=== PATIENT | female | born 1930 | race Caucasian/White ===

== ENCOUNTER 2020-07-27 11:55 | Inpatient (IN) | payer MEDICARE ==
[~2020-07-27] VITALS: Ht 157.5 cm; Wt 45.8 kg
[~2020-07-27 11:55] MED LIST: CIME800T MT; ESOM10SU PO; RIVA1PAT9 TP; TRAZ-251 MT
[2020-07-27 13:51] LABS: BASOPHILS % 0.5 % (0.0-2.0); EOSINOPHILS % 1.2 % (0.0-5.0); HEMATOCRIT. 38.4 % (36.0-48.0); HEMOGLOBIN. 12.7 g/dL (12.0-16.0); LYMPHOCYTES % 17.7 % (20.0-50.0); MEAN CORPUSCULAR HEMOGLOBIN 29.4 pg (28.0-32.0); MEAN CORPUSCULAR VOLUME 89.2 fL (81.0-99.0); MEAN PLATELET VOLUME 8.6 fl (7.4-10.4); MONOCYTES % 4.9 % (2.0-8.0); NEUTROPHILS % 75.7 % (40.0-76.0); PLATELET 307 x1000/uL (130-400); RED BLOOD CELL COUNT 4.31 mill/uL (4.2-5.4); RED CELL DISTRIBUTION WIDTH 17.6 % (11.6-14.6)
[2020-07-27 13:58] LABS: CLARITY URINE TURBID (CLEAR); COLOR URINE YELLOW (YELLOW); KETONES URINE TRACE (NEGATIVE); LEUKOCYTE ESTERASE URINE TRACE (NEGATIVE); NITRITE URINE NEGATIVE (NEGATIVE); OCCULT BLOOD URINE TRACE (NEGATIVE); PH URINE 7.5 (4.5-8.0); PROTEIN URINE 1+ (NEGATIVE); SPECIFIC GRAVITY URINE 1.022 (1.005-1.030)
[2020-07-27 14:01] LABS: CHLORIDE 110 mEq/L (98-107); INR 1.1; PROTHROMBIN TIME 11.1 sec (9.6-11.0)
[2020-07-27] MEDS ORDERED: CEFTRIAXONE 1 G PREMIX 50 ML IV SCH (14:15)
[2020-07-27] MEDS ORDERED: SODIUM CHLORIDE 0.9% 1,000 ML IV ONE (14:15)
[2020-07-27] MEDS ORDERED: ACETAMINOPHEN 325MG TABLET PO PRN (14:30)
[2020-07-27] MEDS ORDERED: ONDANSETRON HCL 4MG/2ML INJ IV PRN (14:30)
[2020-07-27] MEDS: AMLODIPINE 2.5MG TABLET PO SCH (15:30)
[2020-07-27] MEDS: DOCUSATE SODIUM 250MG CAPSULE PO SCH (15:45)
[2020-07-27 17:33] VITALS: BP 133/97
[2020-07-27 17:40] VITALS: BP 149/89
[2020-07-27] MEDS: DEXT 5%/0.45% NACL 1000ML 1,000 ML IV SCH (18:36)
[2020-07-27 20:00] VITALS: BP 134/83
[2020-07-28 00:04] VITALS: BP 159/81
[2020-07-28 04:29] VITALS: BP 154/74
[2020-07-28] MEDS: DEXT 5%/0.45% NACL 1000ML 1,000 ML IV SCH ×2 (04:35→18:01)
[2020-07-28 07:53] LABS: BASOPHILS % 0.5 % (0.0-2.0); EOSINOPHILS % 3.4 % (0.0-5.0); HEMATOCRIT. 35.3 % (36.0-48.0); HEMOGLOBIN. 11.5 g/dL (12.0-16.0); LYMPHOCYTES % 21.1 % (20.0-50.0); MEAN CORPUSCULAR HEMOGLOBIN 29.3 pg (28.0-32.0); MEAN PLATELET VOLUME 8.4 fl (7.4-10.4); MONOCYTES % 8.7 % (2.0-8.0); NEUTROPHILS % 66.3 % (40.0-76.0); PLATELET 243 x1000/uL (130-400); RED BLOOD CELL COUNT 3.92 mill/uL (4.2-5.4); RED CELL DISTRIBUTION WIDTH 17.7 % (11.6-14.6)
[2020-07-28 08:00] VITALS: BP 154/67
[2020-07-28 08:09] LABS: CHLORIDE 111 mEq/L (98-107)
[2020-07-28] MEDS: ASPIRIN 81MG TABLET PO SCH (08:59)
[2020-07-28] MEDS: DOCUSATE SODIUM 250MG CAPSULE PO SCH (08:59)
[2020-07-28] MEDS ORDERED: POTASSIUM CHLORIDE 20MEQ TABLET SR PO NR (09:00)
[2020-07-28] MEDS: AMLODIPINE 2.5MG TABLET PO SCH (09:01)
[2020-07-28 12:00] VITALS: BP 181/83
[2020-07-28] MEDS ORDERED: CEFTRIAXONE 1,000 MG in DEXTROSE 5% WATER 50 ML IV SCH (15:00)
[2020-07-28 16:00] VITALS: BP 153/73
[2020-07-28] MEDS: CEFTRIAXONE 1,000 MG in DEXTROSE 5% WATER 50 ML IV SCH (18:00)
[2020-07-28 20:00] VITALS: BP 152/58
[2020-07-28] MEDS: AMLODIPINE 5MG TABLET PO SCH (20:51)
[2020-07-29] VITALS: BP 95/79
[2020-07-29 04:30] VITALS: BP 116/59
[2020-07-29 06:25] LABS: BASOPHILS % 0.4 % (0.0-2.0); EOSINOPHILS % 2.6 % (0.0-5.0); HEMATOCRIT. 33.9 % (36.0-48.0); HEMOGLOBIN. 11.4 g/dL (12.0-16.0); LYMPHOCYTES % 18.2 % (20.0-50.0); MEAN CORPUSCULAR HEMOGLOBIN 29.4 pg (28.0-32.0); MEAN CORPUSCULAR VOLUME 87.8 fL (81.0-99.0); MEAN PLATELET VOLUME 8.5 fl (7.4-10.4); MONOCYTES % 7.5 % (2.0-8.0); NEUTROPHILS % 71.3 % (40.0-76.0); PLATELET 275 x1000/uL (130-400); RED BLOOD CELL COUNT 3.87 mill/uL (4.2-5.4); RED CELL DISTRIBUTION WIDTH 17.4 % (11.6-14.6)
[2020-07-29] MEDS: DEXT 5%/0.45% NACL 1000ML 1,000 ML IV SCH (06:30)
[2020-07-29 07:02] LABS: CHLORIDE 110 mEq/L (98-107)
[2020-07-29] MEDS: DOCUSATE SODIUM 250MG CAPSULE PO SCH (09:00)
[2020-07-29] MEDS: AMLODIPINE 5MG TABLET PO SCH (09:39)
[2020-07-29] MEDS: ASPIRIN 81MG TABLET PO SCH (09:39)
[2020-07-29 09:49] VITALS: BP 153/63
[2020-07-29 12:00] VITALS: BP 136/99
[2020-07-29] MEDS ORDERED: AMLO5TAB88 PO (13:05)
[2020-07-29 14:52] VITALS: BP 147/71
[2020-07-29 16:00] VITALS: BP 129/50
[2020-07-29] MEDS: CEFTRIAXONE 1,000 MG in DEXTROSE 5% WATER 50 ML IV SCH (18:49)
== END 2020-07-29 19:55 | disposition home or self-care (01) | DRG 73 ==
LOC: ER 12:01 → EDBEDREQSVC 15:18 → EDBEDREQ 15:18 → ENRESERV 15:38 → 6WST 17:14
PROVIDERS: ADMIT Ophthalmology; ATTEND Ophthalmology
DX: G90.8 Other disorders of autonomic nervous system (principal); E43 Unspecified severe protein-calorie malnutrition; E87.2 Acidosis; Z68.1 Body mass index [BMI] 19.9 or less, adult; N39.0 Urinary tract infection, site not specified; E87.8 Other disorders of electrolyte and fluid balance, not elsewhere classified; F02.80 Dementia in other diseases classified elsewhere, unspecified severity, without behavioral disturbance, psychotic disturbance, mood disturbance, and anxiety; G20 Parkinson's disease; I45.10 Unspecified right bundle-branch block; Z86.73 Personal history of transient ischemic attack (TIA), and cerebral infarction without residual deficits; Z79.899 Other long term (current) drug therapy
CPT/HCPCS: 36415; 71045; 80048; 80053; 81003; 83605; 83735; 84145; 84484; 85025; 93005; 93306; 93880; 97162; 97166; 99291; J0696; J7060

== ENCOUNTER 2020-07-30 16:25 | Inpatient (IN) | payer MEDICARE ==
[~2020-07-30] VITALS: Ht 160 cm; Wt 63.5 kg
[~2020-07-30 16:25] MED LIST changes: +AMLO5TAB88 PO
[2020-07-30] MEDS ORDERED: PANTOPRAZOLE SODIUM 40 MG/VIAL IV STA (16:36)
[2020-07-30 17:42] LABS: BASOPHILS % 0.2 % (0.0-2.0); HEMATOCRIT. 33.9 % (36.0-48.0); HEMOGLOBIN. 11.2 g/dL (12.0-16.0); LYMPHOCYTES % 8.9 % (20.0-50.0); MEAN CORPUSCULAR HEMOGLOBIN 29.3 pg (28.0-32.0); MEAN CORPUSCULAR VOLUME 88.5 fL (81.0-99.0); MEAN PLATELET VOLUME 8.6 fl (7.4-10.4); MONOCYTES % 4.3 % (2.0-8.0); NEUTROPHILS % 86.6 % (40.0-76.0); PLATELET 278 x1000/uL (130-400); RED BLOOD CELL COUNT 3.83 mill/uL (4.2-5.4); RED CELL DISTRIBUTION WIDTH 17.3 % (11.6-14.6)
[2020-07-30 17:46] LABS: INR 1.1; PROTHROMBIN TIME 11.3 sec (9.6-11.0)
[2020-07-30 17:51] LABS: CHLORIDE 112 mEq/L (98-107)
[2020-07-30] MEDS ORDERED: IOHEXOL-300 100 ML BOTTLE ONE (19:32)
[2020-07-30 22:52] LABS: CLARITY URINE CLEAR (CLEAR); COLOR URINE YELLOW (YELLOW); KETONES URINE TRACE (NEGATIVE); LEUKOCYTE ESTERASE URINE NEGATIVE (NEGATIVE); NITRITE URINE NEGATIVE (NEGATIVE); OCCULT BLOOD URINE NEGATIVE (NEGATIVE); PROTEIN URINE TRACE (NEGATIVE); SPECIFIC GRAVITY URINE 1.057 (1.005-1.030); UROBILINOGEN URINE 0.2 E.U./dL (0.2-1.0)
[2020-07-31] VITALS (8 sets, daily range): BP systolic 121–157; BP diastolic 51–83
[2020-07-31] MEDS: DEXT 5%/0.45% NACL 1000ML 1,000 ML IV SCH ×2 (02:31→17:05)
[2020-07-31] MEDS: CEFTRIAXONE 1,000 MG in DEXTROSE 5% WATER 50 ML IV SCH (04:21)
[2020-07-31 06:35] LABS: BASOPHILS % 0.3 % (0.0-2.0); EOSINOPHILS % 0.2 % (0.0-5.0); HEMATOCRIT. 32.6 % (36.0-48.0); HEMOGLOBIN. 10.7 g/dL (12.0-16.0); LYMPHOCYTES % 9.3 % (20.0-50.0); MEAN CORPUSCULAR HEMOGLOBIN 29.4 pg (28.0-32.0); MEAN CORPUSCULAR VOLUME 89.5 fL (81.0-99.0); MEAN PLATELET VOLUME 8.7 fl (7.4-10.4); MONOCYTES % 5.2 % (2.0-8.0); PLATELET 258 x1000/uL (130-400); RED BLOOD CELL COUNT 3.65 mill/uL (4.2-5.4); RED CELL DISTRIBUTION WIDTH 18.1 % (11.6-14.6)
[2020-07-31 07:37] LABS: CHLORIDE 112 mEq/L (98-107)
[2020-07-31] MEDS: POTASSIUM CHLORIDE 20MEQ TABLET SR PO SCH ×2 (12:45→16:24)
[2020-07-31] MEDS: PANTOPRAZOLE SODIUM 40 MG/VIAL IV SCH ×2 (16:25→21:06)
[2020-07-31] MEDS ORDERED: DILTIAZEM HCL 5MG/ML 5ML VIAL IV NR (22:45)
[2020-08-01] VITALS: BP 125/72
[2020-08-01 04:00] VITALS: BP 122/44
[2020-08-01] MEDS: DEXT 5%/0.45% NACL 1000ML 1,000 ML IV SCH ×2 (04:01→18:51)
[2020-08-01] MEDS: CEFTRIAXONE 1,000 MG in DEXTROSE 5% WATER 50 ML IV SCH (04:15)
[2020-08-01 08:32] LABS: BASOPHILS % 0.2 % (0.0-2.0); EOSINOPHILS % 0.3 % (0.0-5.0); HEMATOCRIT. 27.7 % (36.0-48.0); HEMOGLOBIN. 9.2 g/dL (12.0-16.0); LYMPHOCYTES % 11.3 % (20.0-50.0); MEAN CORPUSCULAR HEMOGLOBIN 29.5 pg (28.0-32.0); MEAN CORPUSCULAR VOLUME 88.9 fL (81.0-99.0); MONOCYTES % 6.5 % (2.0-8.0); NEUTROPHILS % 81.7 % (40.0-76.0); PLATELET 244 x1000/uL (130-400); RED BLOOD CELL COUNT 3.12 mill/uL (4.2-5.4)
[2020-08-01 08:49] LABS: CHLORIDE 110 mEq/L (98-107)
[2020-08-01] MEDS: PANTOPRAZOLE SODIUM 40 MG/VIAL IV SCH ×2 (09:45→22:04)
[2020-08-01 12:00] VITALS: BP 139/49
[2020-08-01] MEDS ORDERED: POTASSIUM CHLORIDE 20MEQ TABLET SR PO NR (13:03)
[2020-08-01 16:00] VITALS: BP 114/69
[2020-08-01 20:00] VITALS: BP 128/62
[2020-08-01] MEDS ORDERED: POTASSIUM CHLORIDE INJ 40 MEQ in DEXT 5% WATER 250 ML IV SCH (20:00)
[2020-08-02] VITALS: BP 152/96
[2020-08-02 04:00] VITALS: BP 150/50
[2020-08-02] MEDS: CEFTRIAXONE 1,000 MG in DEXTROSE 5% WATER 50 ML IV SCH (05:36)
[2020-08-02] MEDS ORDERED: KCL 20MEQ/100ML PREMIX 100 ML IV NR (06:30)
[2020-08-02] MEDS: POTASSIUM CHLORIDE INJ 60 MEQ in DEXT 5% WATER 500 ML IV SCH ×2 (09:00→09:26)
[2020-08-02 09:31] LABS: HEMATOCRIT. 26.4 % (36.0-48.0); HEMOGLOBIN. 8.8 g/dL (12.0-16.0); MEAN CORPUSCULAR HEMOGLOBIN 29.7 pg (28.0-32.0); MEAN CORPUSCULAR VOLUME 88.9 fL (81.0-99.0); MEAN PLATELET VOLUME 8.9 fl (7.4-10.4); PLATELET 260 x1000/uL (130-400); RED BLOOD CELL COUNT 2.97 mill/uL (4.2-5.4)
[2020-08-02 09:38] LABS: CHLORIDE 108 mEq/L (98-107)
[2020-08-02] MEDS: PANTOPRAZOLE SODIUM 40 MG/VIAL IV SCH ×2 (11:40→21:01)
[2020-08-02] MEDS ORDERED: POTASSIUM CHLORIDE INJ 40 MEQ in DEXT 5% WATER 500 ML IV SCH (12:00)
[2020-08-02 13:53] LABS: PLATELET ESTIMATE NORMAL
[2020-08-02] MEDS ORDERED: MIDAZOLAM HCL 5 MG/5 ML VIAL IV PRN (15:57)
[2020-08-02] MEDS ORDERED: MIDAZOLAM HCL 5 MG/5 ML VIAL ONE (16:03)
[2020-08-02] MEDS ORDERED: FENTANYL CITRATE/PF 50MCG/ML 2ML VIAL ONE (16:03)
[2020-08-02] MEDS: DEXT 5%/0.45% NACL 1000ML 1,000 ML IV SCH (16:45)
[2020-08-02] MEDS: METOCLOPRAMIDE HCL 10MG/2ML VIAL IV SCH (18:00)
[2020-08-02] MEDS: SUCRALFATE 1 G/10 ML UDC GT SCH (18:00)
[2020-08-02] MEDS ORDERED: BISACODYL 10MG SUPP PR NR (18:00)
[2020-08-02 18:37] VITALS: BP 122/68
[2020-08-02 20:00] VITALS: BP 115/53
[2020-08-03] VITALS: BP 121/51
[2020-08-03] MEDS: METOCLOPRAMIDE HCL 10MG/2ML VIAL IV SCH ×4 (00:41→17:47)
[2020-08-03] MEDS: SUCRALFATE 1 G/10 ML UDC GT SCH ×4 (00:41→17:47)
[2020-08-03 04:00] VITALS: BP 151/51
[2020-08-03] MEDS: CEFTRIAXONE 1,000 MG in DEXTROSE 5% WATER 50 ML IV SCH (05:29)
[2020-08-03] MEDS: DEXT 5%/0.45% NACL 1000ML 1,000 ML IV SCH ×2 (05:31→17:47)
[2020-08-03 07:13] LABS: BASOPHILS % 0.1 % (0.0-2.0); EOSINOPHILS % 0.1 % (0.0-5.0); HEMATOCRIT. 27.8 % (36.0-48.0); HEMOGLOBIN. 9.3 g/dL (12.0-16.0); LYMPHOCYTES % 8.8 % (20.0-50.0); MEAN CORPUSCULAR HEMOGLOBIN 29.4 pg (28.0-32.0); MEAN CORPUSCULAR VOLUME 88.4 fL (81.0-99.0); MEAN PLATELET VOLUME 8.8 fl (7.4-10.4); MONOCYTES % 4.1 % (2.0-8.0); NEUTROPHILS % 86.9 % (40.0-76.0); PLATELET 252 x1000/uL (130-400); RED BLOOD CELL COUNT 3.15 mill/uL (4.2-5.4); RED CELL DISTRIBUTION WIDTH 18.4 % (11.6-14.6)
[2020-08-03 07:33] LABS: CHLORIDE 111 mEq/L (98-107)
[2020-08-03 07:47] VITALS: BP 142/60
[2020-08-03] MEDS: PANTOPRAZOLE SODIUM 40 MG/VIAL IV SCH ×2 (08:16→22:05)
[2020-08-03 11:38] VITALS: BP 141/70
[2020-08-03 15:48] VITALS: BP 132/58
[2020-08-03 20:00] VITALS: BP 113/57
[2020-08-04] VITALS: BP 118/21
[2020-08-04] MEDS: METOCLOPRAMIDE HCL 10MG/2ML VIAL IV SCH ×3 (00:39→11:18)
[2020-08-04] MEDS: SUCRALFATE 1 G/10 ML UDC GT SCH ×5 (00:39→23:02)
[2020-08-04 04:00] VITALS: BP 111/52
[2020-08-04] MEDS: DEXT 5%/0.45% NACL 1000ML 1,000 ML IV SCH ×2 (05:28→20:44)
[2020-08-04] MEDS: CEFTRIAXONE 1,000 MG in DEXTROSE 5% WATER 50 ML IV SCH (05:28)
[2020-08-04 08:00] VITALS: BP 155/55
[2020-08-04] MEDS: ZINC SULFATE 220 MG ( 50 ) CAPSULE GT SCH (08:54)
[2020-08-04] MEDS: PANTOPRAZOLE SODIUM 40 MG/VIAL IV SCH ×2 (08:54→20:44)
[2020-08-04] MEDS: ASCORBIC ACID 500 MG TABLET GT SCH (08:54)
[2020-08-04 12:00] VITALS: BP 138/50
[2020-08-04 16:00] VITALS: BP 141/53
[2020-08-04 16:58] LABS: HEMATOCRIT. 29.2 % (36.0-48.0); HEMOGLOBIN. 9.5 g/dL (12.0-16.0); MEAN CORPUSCULAR HEMOGLOBIN 28.9 pg (28.0-32.0); MEAN CORPUSCULAR VOLUME 88.7 fL (81.0-99.0); MEAN PLATELET VOLUME 8.5 fl (7.4-10.4); PLATELET 273 x1000/uL (130-400); RED BLOOD CELL COUNT 3.29 mill/uL (4.2-5.4); RED CELL DISTRIBUTION WIDTH 18.6 % (11.6-14.6)
[2020-08-04 17:06] LABS: CHLORIDE 107 mEq/L (98-107)
[2020-08-04 17:11] LABS: TOTAL IRON BINDING CAPACITY 320 ug/dL (250-450)
[2020-08-04 17:25] LABS: FOLIC ACID (FOLATE) SERUM 5.5 ng/mL (>5.38)
[2020-08-04] MEDS: METRONIDAZOLE 500 MG PREMIX 100 ML IV SCH (18:33)
[2020-08-04 19:17] LABS: CLARITY URINE CLEAR (CLEAR); COLOR URINE YELLOW (YELLOW); KETONES URINE NEGATIVE (NEGATIVE); LEUKOCYTE ESTERASE URINE 2+ (NEGATIVE); NITRITE URINE NEGATIVE (NEGATIVE); OCCULT BLOOD URINE 2+ (NEGATIVE); PROTEIN URINE NEGATIVE (NEGATIVE); SPECIFIC GRAVITY URINE 1.011 (1.005-1.030); UROBILINOGEN URINE 0.2 E.U./dL (0.2-1.0)
[2020-08-04 20:00] VITALS: BP 128/68
[2020-08-04 22:54] LABS: PLATELET ESTIMATE NORMAL
[2020-08-05 00:04] VITALS: BP 135/46
[2020-08-05] MEDS: METRONIDAZOLE 500 MG PREMIX 100 ML IV SCH ×3 (03:00→18:11)
[2020-08-05 04:00] VITALS: BP 120/30
[2020-08-05 05:50] LABS: BASOPHILS % 0.4 % (0.0-2.0); EOSINOPHILS % 1.3 % (0.0-5.0); HEMOGLOBIN. 9.6 g/dL (12.0-16.0); LYMPHOCYTES % 11.1 % (20.0-50.0); MEAN CORPUSCULAR HEMOGLOBIN 29.2 pg (28.0-32.0); MEAN CORPUSCULAR VOLUME 88.5 fL (81.0-99.0); MEAN PLATELET VOLUME 8.6 fl (7.4-10.4); MONOCYTES % 7.2 % (2.0-8.0); PLATELET 266 x1000/uL (130-400); RED BLOOD CELL COUNT 3.28 mill/uL (4.2-5.4); RED CELL DISTRIBUTION WIDTH 18.3 % (11.6-14.6)
[2020-08-05] MEDS: SUCRALFATE 1 G/10 ML UDC GT SCH ×3 (06:00→17:06)
[2020-08-05 07:36] LABS: CHLORIDE 107 mEq/L (98-107)
[2020-08-05 08:00] VITALS: BP 138/28
[2020-08-05] MEDS: ASCORBIC ACID 500 MG TABLET GT SCH (09:08)
[2020-08-05] MEDS: PANTOPRAZOLE SODIUM 40 MG/VIAL IV SCH ×2 (09:08→21:57)
[2020-08-05] MEDS: ZINC SULFATE 220 MG ( 50 ) CAPSULE GT SCH (09:09)
[2020-08-05] MEDS: DEXT 5%/0.45% NACL 1000ML 1,000 ML IV SCH ×2 (09:09→21:57)
[2020-08-05 12:00] VITALS: BP 115/30
[2020-08-05] MEDS ORDERED: CLONIDINE 0.1MG TABLET PO PRN (15:45)
[2020-08-05] MEDS ORDERED: LORAZEPAM 2MG/ML CPJ IV PRN (15:45)
[2020-08-05] MEDS ORDERED: BISACODYL 10MG SUPP PR PRN (15:45)
[2020-08-05] MEDS ORDERED: ACETAMINOPHEN 650MG SUPP PR PRN (15:45)
[2020-08-05] MEDS ORDERED: CEFTRIAXONE 1 G PREMIX 50 ML IV SCH (15:45)
[2020-08-05] MEDS ORDERED: IPRATROPIUM/ALBUTEROL 0.5-3(2.5)MG/3ML NEB HHN PRN (15:45)
[2020-08-05] MEDS ORDERED: DIPHENHYDRAMINE 50MG/ML VIAL IV PRN (15:45)
[2020-08-05] MEDS ORDERED: ACETAMINOPHEN 325MG TABLET PO PRN (15:45)
[2020-08-05] MEDS ORDERED: HYDROCODONE/ACETAMINOPHEN 5/325MG TABLET PO PRN (15:45)
[2020-08-05 16:00] VITALS: BP 131/50
[2020-08-05 16:13] LABS: BG BASE EXCESS -2.7 mmol/L (-2.0-2.0); BG CARBOXYHEMOGLOBIN 0.3 % (0.5-1.5); BG DEOXYHEMOGLOBIN 3.8 % (0.0-5.0); BG FRACTION INSPIRED OXYGEN 21; BG HCO3 ACT 20.1 mmol/L (22.0-26.0); BG METHEMOGLOBIN 0.2 % (0.0-1.5); BG OXYGEN SATURATION 96.2 % (92.0-98.5); BG OXYHEMOGLOBIN 95.7 % (94.0-97.0); BG PCO2 27.8 mmHg (35.0-45.0); BG PH 7.477 (7.350-7.450); BG PO2 77.4 mmHg (75.0-100.0); BG SAMPLE SITE RIGHT RADIAL; BG TOTAL HEMOGLOBIN 9.5 g/dL (12.0-18.0); BG VENT MODE ROOM AIR
[2020-08-05] MEDS: CEFTRIAXONE 1,000 MG in DEXTROSE 5% WATER 50 ML IV SCH (17:06)
[2020-08-05 20:00] VITALS: BP 129/47
[2020-08-06] VITALS: BP 115/45
[2020-08-06] MEDS: METRONIDAZOLE 500 MG PREMIX 100 ML IV SCH ×3 (02:41→17:44)
[2020-08-06] MEDS: SUCRALFATE 1 G/10 ML UDC GT SCH ×4 (02:41→17:00)
[2020-08-06 04:00] VITALS: BP 109/44
[2020-08-06 06:26] LABS: BASOPHILS % 0.3 % (0.0-2.0); EOSINOPHILS % 2.6 % (0.0-5.0); HEMATOCRIT. 26.2 % (36.0-48.0); HEMOGLOBIN. 8.7 g/dL (12.0-16.0); LYMPHOCYTES % 12.3 % (20.0-50.0); MEAN CORPUSCULAR HEMOGLOBIN 29.5 pg (28.0-32.0); MEAN CORPUSCULAR VOLUME 88.4 fL (81.0-99.0); MEAN PLATELET VOLUME 7.8 fl (7.4-10.4); MONOCYTES % 10.3 % (2.0-8.0); NEUTROPHILS % 74.5 % (40.0-76.0); PLATELET 264 x1000/uL (130-400); RED BLOOD CELL COUNT 2.96 mill/uL (4.2-5.4); RED CELL DISTRIBUTION WIDTH 18.6 % (11.6-14.6)
[2020-08-06 06:33] LABS: CHLORIDE 107 mEq/L (98-107)
[2020-08-06 08:00] VITALS: BP 110/46
[2020-08-06] MEDS: ASCORBIC ACID 500 MG TABLET GT SCH (08:40)
[2020-08-06] MEDS: DEXT 5%/0.45% NACL 1000ML 1,000 ML IV SCH ×2 (08:40→21:23)
[2020-08-06] MEDS: ZINC SULFATE 220 MG ( 50 ) CAPSULE GT SCH (08:40)
[2020-08-06] MEDS: PANTOPRAZOLE SODIUM 40 MG/VIAL IV SCH ×2 (08:40→21:22)
[2020-08-06 12:00] VITALS: BP 139/62
[2020-08-06 16:00] VITALS: BP 126/67
[2020-08-06] MEDS: CEFTRIAXONE 1,000 MG in DEXTROSE 5% WATER 50 ML IV SCH (16:57)
[2020-08-06] MEDS ORDERED: AMOX1TAB15 GT (17:03)
[2020-08-06 20:00] VITALS: BP 133/43
[2020-08-07] VITALS: BP 150/70
[2020-08-07] MEDS: SUCRALFATE 1 G/10 ML UDC GT SCH ×4 (00:19→16:09)
[2020-08-07] MEDS: METRONIDAZOLE 500 MG PREMIX 100 ML IV SCH ×3 (01:33→17:04)
[2020-08-07 04:00] VITALS: BP 150/40
[2020-08-07 08:00] VITALS: BP 114/50
[2020-08-07] MEDS: DEXT 5%/0.45% NACL 1000ML 1,000 ML IV SCH (09:33)
[2020-08-07] MEDS: PANTOPRAZOLE SODIUM 40 MG/VIAL IV SCH (09:33)
[2020-08-07] MEDS: ASCORBIC ACID 500 MG TABLET GT SCH (09:33)
[2020-08-07] MEDS: ZINC SULFATE 220 MG ( 50 ) CAPSULE GT SCH (09:33)
[2020-08-07 12:00] VITALS: BP 138/53
[2020-08-07 16:00] VITALS: BP 130/50
[2020-08-07] MEDS: CEFTRIAXONE 1,000 MG in DEXTROSE 5% WATER 50 ML IV SCH (16:09)
[2020-08-07 20:00] VITALS: BP 126/53
[2020-08-08] VITALS: BP 119/51
[2020-08-08] MEDS: PANTOPRAZOLE SODIUM 40 MG/VIAL IV SCH ×2 (01:10→10:07)
[2020-08-08] MEDS: SUCRALFATE 1 G/10 ML UDC GT SCH ×2 (01:10→06:16)
[2020-08-08] MEDS: METRONIDAZOLE 500 MG PREMIX 100 ML IV SCH ×2 (01:10→10:07)
[2020-08-08] MEDS: DEXT 5%/0.45% NACL 1000ML 1,000 ML IV SCH ×2 (01:11→10:11)
[2020-08-08 04:00] VITALS: BP 151/70
[2020-08-08 08:00] VITALS: BP 115/46
[2020-08-08] MEDS: ASCORBIC ACID 500 MG TABLET GT SCH (10:06)
[2020-08-08] MEDS: ZINC SULFATE 220 MG ( 50 ) CAPSULE GT SCH (10:06)
[2020-08-08 11:55] VITALS: BP 129/81
[2020-08-08 12:00] VITALS: BP 129/81
== END 2020-08-08 13:30 | disposition home or self-care (01) | DRG 380 ==
LOC: ER 16:25 → MICUSO 17:43 → 7EST 23:17 → 8WST 07-31 21:52
PROVIDERS: ADMIT Ophthalmology; ATTEND Ophthalmology
PROC: 0DH63UZ Insertion of Feeding Device into Stomach, Percutaneous Approach (ICD-10-PCS; principal; 2020-08-02)
PROC: 0DB68ZX Excision of Stomach, Via Natural or Artificial Opening Endoscopic, Diagnostic (ICD-10-PCS; 2020-08-02)
DX: K22.11 Ulcer of esophagus with bleeding (principal); E43 Unspecified severe protein-calorie malnutrition; J18.9 Pneumonia, unspecified organism; I47.1 Supraventricular tachycardia; E87.1 Hypo-osmolality and hyponatremia; G93.40 Encephalopathy, unspecified; N39.0 Urinary tract infection, site not specified; K29.41 Chronic atrophic gastritis with bleeding; Z86.73 Personal history of transient ischemic attack (TIA), and cerebral infarction without residual deficits; G20 Parkinson's disease; I10 Essential (primary) hypertension; E87.8 Other disorders of electrolyte and fluid balance, not elsewhere classified; D64.9 Anemia, unspecified; E87.6 Hypokalemia; F02.80 Dementia in other diseases classified elsewhere, unspecified severity, without behavioral disturbance, psychotic disturbance, mood disturbance, and anxiety; R13.10 Dysphagia, unspecified; K22.2 Esophageal obstruction; K44.9 Diaphragmatic hernia without obstruction or gangrene; M41.9 Scoliosis, unspecified; M47.816 Spondylosis without myelopathy or radiculopathy, lumbar region; Z20.828 Contact with and (suspected) exposure to other viral communicable diseases; Z87.19 Personal history of other diseases of the digestive system; Z68.24 Body mass index [BMI] 24.0-24.9, adult; Z79.899 Other long term (current) drug therapy; Z93.1 Gastrostomy status; D72.829 Elevated white blood cell count, unspecified
CPT/HCPCS: 36415; 36600; 71045; 74177; 80048; 80053; 81003; 82375; 82607; 82728; 82746; 82805; 83540; 83550; 83605; 84132; 84134; 84484; 85025; 86850; 86900; 87426; 87635; 88305; 88313; 92610; 93005; 96374; 99152; 99285; C1893; C9113; J0696; J2250; J2765; J3010; J3480; J3490; J7060; Q9967; G0500